=== PATIENT | female | born 1995 | race African-American/Black ===

== ENCOUNTER 2022-06-05 11:25 | Inpatient (IN) | payer MEDICAID ==
[~2022-06-05] VITALS: Ht 157.5 cm; Wt 73.9 kg
[2022-06-05] MEDS ORDERED: FAMOTIDINE 20MG TABLET PO ONE (12:30)
[2022-06-05] MEDS ORDERED: MAGNESIUM/ALUMINUM HYDROXIDE/SIMETHICONE 30ML UDC PO STA (12:30)
[2022-06-05] MEDS ORDERED: VISCOUS LIDOCAINE 2% 15 ML UDC PO STA (12:30)
[2022-06-05] MEDS ORDERED: ONDANSETRON 4MG ODT PO STA (12:30)
[2022-06-05 13:02] LABS: HEMATOCRIT. 34.7 % (36.0-48.0); HEMOGLOBIN. 11.8 g/dL (12.0-16.0); MEAN CORPUSCULAR HEMOGLOBIN 29.6 pg (28.0-32.0); MEAN CORPUSCULAR VOLUME 86.8 fL (81.0-99.0); MEAN PLATELET VOLUME 8.7 fl (7.4-10.4); PLATELET 204 x1000/uL (130-400); RED BLOOD CELL COUNT 3.99 mill/uL (4.2-5.4); RED CELL DISTRIBUTION WIDTH 13.3 % (11.6-14.6)
[2022-06-05 13:12] LABS: CLARITY URINE CLEAR (CLEAR); COLOR URINE YELLOW (YELLOW); KETONES URINE 3+ (NEGATIVE); LEUKOCYTE ESTERASE URINE TRACE (NEGATIVE); NITRITE URINE NEGATIVE (NEGATIVE); OCCULT BLOOD URINE 1+ (NEGATIVE); PH URINE 6.5 (4.5-8.0); PROTEIN URINE 1+ (NEGATIVE); SPECIFIC GRAVITY URINE 1.018 (1.005-1.030)
[2022-06-05 13:13] LABS: PROTHROMBIN TIME 11.1 sec (9.6-11.0)
[2022-06-05 13:18] LABS: CHLORIDE 92 mEq/L (98-107)
[2022-06-05 13:20] LABS: HCG SCREEN NEGATIVE
[2022-06-05 13:26] LABS: PLATELET ESTIMATE NORMAL
[2022-06-05] MEDS ORDERED: SODIUM CHLORIDE 0.9% 1,000 ML IV ONE (14:00)
[2022-06-05] MEDS ORDERED: PIPERACILLIN/TAZOBACTAM 3.375GM/50ML PREMIX IV ONE (14:00)
[2022-06-05] MEDS ORDERED: MORPHINE SULFATE 4 MG/ML CPJ (NOT FOR IM USE) IV ONE (14:00)
[2022-06-05] MEDS ORDERED: PIPERACILLIN/TAZ 3.375G PREMIX 50 ML IV NR ×2 (14:00→22:00)
[2022-06-05] MEDS ORDERED: BUPIVACAINE HCL/PF 0.5% (5MG/ML) 10ML ONE (17:14)
[2022-06-05] MEDS ORDERED: DEXT 5%/0.45% NACL KCL 10MEQ/L 1,000 ML IV SCH (17:15)
[2022-06-05] MEDS ORDERED: ACETAMINOPHEN 650MG SUPP PR PRN (17:15)
[2022-06-05] MEDS ORDERED: LEVOFLOXACIN 500MG PREMIX 100 ML IV SCH (17:15)
[2022-06-05] MEDS ORDERED: PANTOPRAZOLE SODIUM 40 MG/VIAL IV SCH (17:15)
[2022-06-05] MEDS ORDERED: TRAMADOL 50MG TABLET PO PRN (17:15)
[2022-06-05] MEDS ORDERED: GLYCOPYRROLATE 0.2 MG/ML 2ML VIAL ONE ×2 (17:17→17:18)
[2022-06-05] MEDS ORDERED: PROPOFOL 200MG/20ML VIAL IV ONE (17:17)
[2022-06-05] MEDS ORDERED: CEFAZOLIN SODIUM 1000MG/VIAL ONE (17:17)
[2022-06-05] MEDS ORDERED: ROCURONIUM BROMIDE 10MG/ML VIAL 5ML IV ONE (17:17)
[2022-06-05] MEDS ORDERED: NEOSTIGMINE METHYLSULFATE 1MG/ML 10 ML VIAL ONE (17:17)
[2022-06-05] MEDS ORDERED: SUCCINYLCHOLINE CHLORIDE 200MG/10ML IV ONE (17:17)
[2022-06-05] MEDS ORDERED: ONDANSETRON HCL 4MG/2ML INJ ONE (17:17)
[2022-06-05] MEDS ORDERED: DEXAMETHASONE 4MG/ML 1ML VIAL ONE (17:17)
[2022-06-05] MEDS ORDERED: FENTANYL CITRATE/PF 50MCG/ML 2ML VIAL ONE (17:18)
[2022-06-05] MEDS ORDERED: MIDAZOLAM HCL 2 MG/2 ML VIAL ONE (17:18)
[2022-06-05] MEDS: DEXT 5%/0.45% NACL KCL 10MEQ/L 1,000 ML IV SCH (17:30)
[2022-06-05] MEDS ORDERED: POLYMYXIN B SULFATE 500000 UNITS/VIAL ONE (18:01)
[2022-06-05] MEDS ORDERED: ALBUTEROL 6.7GM HFA INHALER ONE (18:07)
[2022-06-05] MEDS ORDERED: SKIN ADHESIVE 0.7 GM EA TOP ONE (18:28)
[2022-06-05] MEDS ORDERED: ONDANSETRON HCL 4MG/2ML INJ IV PRN ×2 (18:30→19:00)
[2022-06-05] MEDS ORDERED: LABETALOL 5MG/ML SYR 20 MG/4 ML SYRINGE IV PRN (18:30)
[2022-06-05] MEDS ORDERED: HYDROMORPHONE HCL/PF 2MG/ML CPJ IV PRN (18:30)
[2022-06-05] MEDS ORDERED: MEPERIDINE HCL/PF 25MG/ML CPJ IV PRN (18:30)
[2022-06-05] MEDS ORDERED: MORPHINE SULFATE 2 MG/ML CPJ (NOT FOR IM USE) IV PRN (19:00)
[2022-06-05] MEDS ORDERED: NALOXONE HCL 0.4MG/ML VIAL IV PRN (19:15)
[2022-06-05] MEDS: FAMOTIDINE 20MG/2ML VIAL IV SCH (21:00)
[2022-06-05 22:00] VITALS: BP 130/90
[2022-06-05] MEDS: METRONIDAZOLE 500 MG PREMIX 100 ML IV SCH (22:00)
[2022-06-05] MEDS ORDERED: METRONIDAZOLE 500 MG PREMIX 100 ML IV SCH (22:00)
[2022-06-06] VITALS: BP 120/80
[2022-06-06 04:00] VITALS: BP 120/82
[2022-06-06] MEDS: METRONIDAZOLE 500 MG PREMIX 100 ML IV SCH ×3 (06:33→22:23)
[2022-06-06] MEDS: PIPERACILLIN/TAZOBACTAM 3.375G in DEXT 5% WATER 50ML IV SCH ×3 (06:33→20:44)
[2022-06-06] MEDS: DEXT 5%/0.45% NACL KCL 10MEQ/L 1,000 ML IV SCH ×2 (06:33→14:32)
[2022-06-06] MEDS: HYDROMORPHONE HCL/PF 2MG/ML CPJ IV PRN ×2 (06:35→14:58)
[2022-06-06] MEDS: ONDANSETRON HCL 4MG/2ML INJ IV PRN (06:35)
[2022-06-06 08:00] VITALS: BP 108/65
[2022-06-06] MEDS: FAMOTIDINE 20MG/2ML VIAL IV SCH ×2 (09:44→20:43)
[2022-06-06 11:28] LABS: HEMATOCRIT. 30.9 % (36.0-48.0); HEMOGLOBIN. 10.3 g/dL (12.0-16.0); LYMPHOCYTES % 8.4 % (20.0-50.0); MEAN CORPUSCULAR HEMOGLOBIN 29.2 pg (28.0-32.0); MEAN CORPUSCULAR VOLUME 87.5 fL (81.0-99.0); MEAN PLATELET VOLUME 8.9 fl (7.4-10.4); MONOCYTES % 13.9 % (2.0-8.0); NEUTROPHILS % 77.7 % (40.0-76.0); PLATELET 212 x1000/uL (130-400); RED BLOOD CELL COUNT 3.54 mill/uL (4.2-5.4); RED CELL DISTRIBUTION WIDTH 13.5 % (11.6-14.6)
[2022-06-06 11:58] LABS: CHLORIDE 99 mEq/L (98-107)
[2022-06-06 12:00] VITALS: BP 114/60
[2022-06-06 12:29] LABS: HDL CHOLESTEROL 43 mg/dL (40-59); LDL CHOLESTEROL 85 mg/dL (5-100)
[2022-06-06 16:00] VITALS: BP 107/65
[2022-06-06] MEDS: MORPHINE SULFATE 4 MG/ML CPJ (NOT FOR IM USE) IV PRN ×2 (17:47→22:24)
[2022-06-06] MEDS: LEVOFLOXACIN 500MG PREMIX 100 ML IV SCH ×2 (18:01→18:02)
[2022-06-06 20:00] VITALS: BP 118/65
[2022-06-07] VITALS (7 sets, daily range): BP systolic 107–125; BP diastolic 69–86
[2022-06-07] MEDS: DEXT 5%/0.45% NACL KCL 10MEQ/L 1,000 ML IV SCH ×2 (01:04→14:40)
[2022-06-07] MEDS: METRONIDAZOLE 500 MG PREMIX 100 ML IV SCH ×3 (06:00→21:29)
[2022-06-07] MEDS: MORPHINE SULFATE 4 MG/ML CPJ (NOT FOR IM USE) IV PRN ×2 (06:10→08:47)
[2022-06-07] MEDS: FAMOTIDINE 20MG/2ML VIAL IV SCH ×2 (08:45→21:28)
[2022-06-07] MEDS ORDERED: BISACODYL 10MG SUPP PR NR (10:15)
[2022-06-07] MEDS: ONDANSETRON HCL 4MG/2ML INJ IV PRN (13:49)
[2022-06-07] MEDS: PIPERACILLIN/TAZOBACTAM 3.375G in DEXT 5% WATER 50ML IV SCH ×2 (14:00→21:29)
[2022-06-07] MEDS: LEVOFLOXACIN 500MG PREMIX 100 ML IV SCH (18:16)
[2022-06-08] MEDS ORDERED: SIMETHICONE 80MG TABLET CHEW PO NR
[2022-06-08] MEDS ORDERED: MELATONIN 3MG TABLET PO NR (00:15)
[2022-06-08] MEDS ORDERED: MELATONIN 6 MG PO ONE (00:15)
[2022-06-08 04:00] VITALS: BP 120/65
[2022-06-08] MEDS: DEXT 5%/0.45% NACL KCL 10MEQ/L 1,000 ML IV SCH ×2 (04:00→17:32)
[2022-06-08] MEDS: METRONIDAZOLE 500 MG PREMIX 100 ML IV SCH ×3 (05:46→21:33)
[2022-06-08] MEDS: PIPERACILLIN/TAZOBACTAM 3.375G in DEXT 5% WATER 50ML IV SCH ×3 (05:47→21:32)
[2022-06-08] MEDS: ONDANSETRON HCL 4MG/2ML INJ IV PRN (06:16)
[2022-06-08] MEDS: FAMOTIDINE 20MG/2ML VIAL IV SCH ×2 (06:17→18:16)
[2022-06-08] MEDS: HYDROMORPHONE HCL/PF 2MG/ML CPJ IV PRN (06:18)
[2022-06-08 08:00] VITALS: BP 119/70
[2022-06-08 12:00] VITALS: BP_SYST 129; BP_SYST 134; BP_DIAS 80; BP_DIAS 82
[2022-06-08 16:00] VITALS: BP 129/80
[2022-06-08] MEDS: LEVOFLOXACIN 500MG PREMIX 100 ML IV SCH (18:16)
[2022-06-08 20:00] VITALS: BP 107/65
[2022-06-09] VITALS: BP 102/55
[2022-06-09 04:00] VITALS: BP 100/65
[2022-06-09] MEDS: METRONIDAZOLE 500 MG PREMIX 100 ML IV SCH ×3 (07:59→21:16)
[2022-06-09 08:00] VITALS: BP 122/71
[2022-06-09] MEDS: DEXT 5%/0.45% NACL KCL 10MEQ/L 1,000 ML IV SCH ×2 (08:00→21:16)
[2022-06-09] MEDS: FAMOTIDINE 20MG/2ML VIAL IV SCH ×2 (08:00→18:00)
[2022-06-09] MEDS: PIPERACILLIN/TAZOBACTAM 3.375G in DEXT 5% WATER 50ML IV SCH ×3 (09:13→22:15)
[2022-06-09 12:00] VITALS: BP 116/71
[2022-06-09 16:00] VITALS: BP 122/72
[2022-06-09] MEDS: LEVOFLOXACIN 500MG PREMIX 100 ML IV SCH (17:28)
[2022-06-09 20:00] VITALS: BP 115/68
[2022-06-10] VITALS: BP 119/65
[2022-06-10 04:00] VITALS: BP 113/72
[2022-06-10] MEDS: FAMOTIDINE 20MG/2ML VIAL IV SCH ×2 (05:21→17:22)
[2022-06-10] MEDS: METRONIDAZOLE 500 MG PREMIX 100 ML IV SCH ×3 (05:21→21:16)
[2022-06-10] MEDS: PIPERACILLIN/TAZOBACTAM 3.375G in DEXT 5% WATER 50ML IV SCH ×3 (06:44→22:48)
[2022-06-10 08:00] VITALS: BP 119/76
[2022-06-10] MEDS: DEXT 5%/0.45% NACL KCL 10MEQ/L 1,000 ML IV SCH ×2 (08:56→23:36)
[2022-06-10] MEDS ORDERED: LEVO-65 MT (10:44)
[2022-06-10] MEDS ORDERED: METR-167 MT (10:44)
[2022-06-10 12:00] VITALS: BP 113/69
[2022-06-10 16:00] VITALS: BP 115/68
[2022-06-10] MEDS: LEVOFLOXACIN 500MG PREMIX 100 ML IV SCH (17:23)
[2022-06-10 20:00] VITALS: BP 102/56
[2022-06-11] VITALS: BP 105/58
[2022-06-11 04:00] VITALS: BP 110/76
[2022-06-11] MEDS: FAMOTIDINE 20MG/2ML VIAL IV SCH (05:54)
[2022-06-11] MEDS: PIPERACILLIN/TAZOBACTAM 3.375G in DEXT 5% WATER 50ML IV SCH (05:54)
[2022-06-11 08:00] VITALS: BP 112/74
[2022-06-11 14:51] VITALS: BP 107/63
== END 2022-06-11 15:56 | disposition home or self-care (01) | DRG 234 ==
LOC: ER 12:39 → EDBEDREQ 15:07 → EDBEDREQTM 15:07 → 6EST 22:00
PROVIDERS: ADMIT Hospitalist; ATTEND Hospitalist
PROC: 0DTJ4ZZ Resection of Appendix, Percutaneous Endoscopic Approach (ICD-10-PCS; principal; 2022-06-05)
DX: K35.80 Unspecified acute appendicitis (principal); K56.7 Ileus, unspecified; E28.2 Polycystic ovarian syndrome; R00.0 Tachycardia, unspecified; Z20.822 Contact with and (suspected) exposure to COVID-19
CPT/HCPCS: 36415; 71045; 74018; 74176; 80053; 80061; 81003; 84703; 85025; 85379; 87426; 88300; 88304; 93005; 97162; 99285; C1893; C9113; C9803; J0330; J0690; J1100; J1170; J1956; J2250; J2270; J2405; J2543; J2704; J2710; J3010; J3490; J7030; J7060; Q0162

== ENCOUNTER 2022-06-20 16:32 | Inpatient (IN) | payer MEDICAID ==
[~2022-06-20] VITALS: Ht 154.9 cm; Wt 59.0 kg
[~2022-06-20 16:32] MED LIST: LEVO-65 MT; METR-167 MT
[2022-06-20 21:12] LABS: CHLORIDE 99 mEq/L (98-107)
[2022-06-20] MEDS ORDERED: PIPERACILLIN/TAZ 3.375G PREMIX 50 ML IV ONE (21:15)
[2022-06-20] MEDS ORDERED: METRONIDAZOLE 500 MG PREMIX 100 ML IV ONE (21:15)
[2022-06-20 21:20] LABS: ETHANOL BLOOD < 10 mg/dL
[2022-06-20 21:43] LABS: HCG SCREEN NEGATIVE
[2022-06-20 22:16] LABS: BASOPHILS % 0.4 % (0.0-2.0); HEMATOCRIT. 29.2 % (36.0-48.0); HEMOGLOBIN. 9.2 g/dL (12.0-16.0); LYMPHOCYTES % 8.2 % (20.0-50.0); MEAN CORPUSCULAR HEMOGLOBIN 28.1 pg (28.0-32.0); MEAN PLATELET VOLUME 8.4 fl (7.4-10.4); NEUTROPHILS % 83.4 % (40.0-76.0); PLATELET 411 x1000/uL (130-400); RED BLOOD CELL COUNT 3.28 mill/uL (4.2-5.4); RED CELL DISTRIBUTION WIDTH 14.8 % (11.6-14.6)
[2022-06-20] MEDS ORDERED: ONDANSETRON HCL 4MG/2ML INJ IV STA (23:13)
[2022-06-20] MEDS ORDERED: MORPHINE SULFATE 4 MG/ML CPJ (NOT FOR IM USE) IV STA (23:13)
[2022-06-20] MEDS ORDERED: PIPERACILLIN/TAZ 3.375G PREMIX 50 ML IV NR (23:45)
[2022-06-21] MEDS ORDERED: HYDROMORPHONE HCL/PF 2MG/ML CPJ IV PRN
[2022-06-21] MEDS ORDERED: ACETAMINOPHEN 325MG TABLET PO PRN
[2022-06-21] MEDS ORDERED: ONDANSETRON HCL 4MG/2ML INJ IV PRN
[2022-06-21] MEDS ORDERED: NALOXONE HCL 0.4MG/ML VIAL IV PRN (00:15)
[2022-06-21] MEDS: DEXT 5%/0.45% NACL 1000ML 1,000 ML IV SCH ×2 (00:56→12:45)
[2022-06-21 02:07] LABS: CLARITY URINE CLOUDY (CLEAR); COLOR URINE DARK YELLOW (YELLOW); KETONES URINE 1+ (NEGATIVE); LEUKOCYTE ESTERASE URINE 1+ (NEGATIVE); NITRITE URINE NEGATIVE (NEGATIVE); OCCULT BLOOD URINE NEGATIVE (NEGATIVE); PH URINE 5.5 (4.5-8.0); PROTEIN URINE 1+ (NEGATIVE); SPECIFIC GRAVITY URINE 1.028 (1.005-1.030)
[2022-06-21 04:43] LABS: *AMPHETAMINES SCREEN URINE NEGATIVE (NEGATIVE); *BARBITURATES SCREEN URINE NEGATIVE (NEGATIVE); *BENZODIAZEPINES SCREEN URINE NEGATIVE (NEGATIVE); *COCAINE SCREEN URINE NEGATIVE (NEGATIVE); CANNABINOID URINE SCREEN NEGATIVE (NEGATIVE); METHADONE URINE SCREEN NEGATIVE (NEGATIVE); OPIATES URINE SCREEN PRESUMTIVE POSITIVE (NEGATIVE); PHENCYCLIDINE URINE SCREEN NEGATIVE (NEGATIVE)
[2022-06-21] MEDS ORDERED: PIPERACILLIN/TAZOBACTAM 3.375 G in DEXTROSE 5% WATER 50 ML IV SCH (06:00)
[2022-06-21] MEDS: TRAMADOL 50MG TABLET PO PRN ×2 (07:04→16:41)
[2022-06-21] MEDS: PIPERACILLIN/TAZOBACTAM 3.375 G in DEXTROSE 5% WATER 50 ML IV SCH ×3 (07:30→22:36)
[2022-06-21] MEDS ORDERED: DIATR MEGLU/DIATRIZOATE SOLN 30ML PO SCH (07:45)
[2022-06-21] MEDS ORDERED: DIATR MEGLU/DIATRIZOATE SOLN 30ML ONE (08:13)
[2022-06-21 12:00] VITALS: BP 113/76
[2022-06-21 20:00] VITALS: BP 112/68
[2022-06-22] VITALS: BP 95/54
[2022-06-22] MEDS: DEXT 5%/0.45% NACL 1000ML 1,000 ML IV SCH ×2 (02:54→16:00)
[2022-06-22 04:00] VITALS: BP 98/56
[2022-06-22] MEDS: PIPERACILLIN/TAZOBACTAM 3.375 G in DEXTROSE 5% WATER 50 ML IV SCH ×3 (05:09→21:09)
[2022-06-22 07:54] LABS: BASOPHILS % 0.3 % (0.0-2.0); EOSINOPHILS % 0.4 % (0.0-5.0); HEMATOCRIT. 26.7 % (36.0-48.0); HEMOGLOBIN. 8.9 g/dL (12.0-16.0); LYMPHOCYTES % 15.6 % (20.0-50.0); MEAN CORPUSCULAR HEMOGLOBIN 29.4 pg (28.0-32.0); MEAN CORPUSCULAR VOLUME 88.3 fL (81.0-99.0); MEAN PLATELET VOLUME 7.3 fl (7.4-10.4); MONOCYTES % 7.4 % (2.0-8.0); NEUTROPHILS % 76.3 % (40.0-76.0); PLATELET 368 x1000/uL (130-400); RED BLOOD CELL COUNT 3.03 mill/uL (4.2-5.4); RED CELL DISTRIBUTION WIDTH 14.5 % (11.6-14.6)
[2022-06-22 09:17] LABS: CHLORIDE 95 mEq/L (98-107)
[2022-06-22 09:28] LABS: HDL CHOLESTEROL 24 mg/dL (40-59); LDL CHOLESTEROL 63 mg/dL (5-100)
[2022-06-22] MEDS ORDERED: POTASSIUM CHLORIDE INJ 40 MEQ in DEXT 5% WATER 500 ML IV ONE (13:00)
[2022-06-22] MEDS: TRAMADOL 50MG TABLET PO PRN (16:38)
[2022-06-22 20:00] VITALS: BP 112/68
[2022-06-22] MEDS: KETOROLAC 15MG/ML VIAL IV PRN (21:53)
[2022-06-23] VITALS: BP 100/62
[2022-06-23 04:00] VITALS: BP 95/63
[2022-06-23] MEDS: DEXT 5%/0.45% NACL 1000ML 1,000 ML IV SCH ×2 (05:03→18:19)
[2022-06-23] MEDS: PIPERACILLIN/TAZOBACTAM 3.375 G in DEXTROSE 5% WATER 50 ML IV SCH ×3 (05:03→21:00)
[2022-06-23 08:00] VITALS: BP 94/59
[2022-06-23 08:08] LABS: BASOPHILS % 0.5 % (0.0-2.0); EOSINOPHILS % 1.1 % (0.0-5.0); HEMOGLOBIN. 8.4 g/dL (12.0-16.0); LYMPHOCYTES % 25.3 % (20.0-50.0); MEAN CORPUSCULAR HEMOGLOBIN 29.6 pg (28.0-32.0); MEAN CORPUSCULAR VOLUME 87.9 fL (81.0-99.0); MEAN PLATELET VOLUME 7.4 fl (7.4-10.4); MONOCYTES % 12.6 % (2.0-8.0); NEUTROPHILS % 60.5 % (40.0-76.0); PLATELET 290 x1000/uL (130-400); RED BLOOD CELL COUNT 2.85 mill/uL (4.2-5.4); RED CELL DISTRIBUTION WIDTH 14.1 % (11.6-14.6)
[2022-06-23 10:23] LABS: CHLORIDE 101 mEq/L (98-107)
[2022-06-23 12:00] VITALS: BP 110/69
[2022-06-23] MEDS ORDERED: POTASSIUM CHLORIDE 20MEQ TABLET SR PO NR (14:00)
[2022-06-23] MEDS: KETOROLAC 15MG/ML VIAL IV PRN (14:13)
[2022-06-23 20:00] VITALS: BP 98/62
[2022-06-24] VITALS: BP 100/58
[2022-06-24 04:00] VITALS: BP 105/61
[2022-06-24] MEDS: PIPERACILLIN/TAZOBACTAM 3.375 G in DEXTROSE 5% WATER 50 ML IV SCH ×3 (05:05→22:00)
[2022-06-24 08:00] VITALS: BP 97/62
[2022-06-24] MEDS: DEXT 5%/0.45% NACL 1000ML 1,000 ML IV SCH ×2 (08:29→21:20)
[2022-06-24 12:00] VITALS: BP 108/68
[2022-06-24] MEDS: KETOROLAC 15MG/ML VIAL IV PRN (15:01)
[2022-06-24 16:00] VITALS: BP 101/71
[2022-06-24 17:50] LABS: BASOPHILS % 1.2 % (0.0-2.0); EOSINOPHILS % 2.1 % (0.0-5.0); HEMOGLOBIN. 9.1 g/dL (12.0-16.0); LYMPHOCYTES % 31.9 % (20.0-50.0); MEAN CORPUSCULAR HEMOGLOBIN 28.9 pg (28.0-32.0); MEAN PLATELET VOLUME 7.9 fl (7.4-10.4); MONOCYTES % 11.6 % (2.0-8.0); NEUTROPHILS % 53.2 % (40.0-76.0); PLATELET 313 x1000/uL (130-400); RED BLOOD CELL COUNT 3.15 mill/uL (4.2-5.4); RED CELL DISTRIBUTION WIDTH 14.5 % (11.6-14.6)
[2022-06-24] MEDS ORDERED: DOCUSATE SODIUM 100MG CAPSULE PO PRN (18:15)
[2022-06-24] MEDS ORDERED: FAMOTIDINE 20MG TABLET PO PRN (18:15)
[2022-06-24 20:00] VITALS: BP 116/67
[2022-06-24 21:40] LABS: CHLORIDE 108 mEq/L (98-107)
[2022-06-25] MEDS: PIPERACILLIN/TAZOBACTAM 3.375 G in DEXTROSE 5% WATER 50 ML IV SCH ×2 (05:18→14:00)
[2022-06-25 08:00] VITALS: BP 111/62
[2022-06-25] MEDS: DEXT 5%/0.45% NACL 1000ML 1,000 ML IV SCH (10:00)
[2022-06-25 12:00] VITALS: BP 108/55
[2022-06-25 12:25] VITALS: BP 111/62
== END 2022-06-25 15:00 | disposition home or self-care (01) | DRG 720 ==
LOC: ER 16:32 → EDBEDREQ 22:01 → EDBEDREQTM 22:01 → MICUSO 06-21 06:07 → 6EST 06-21 09:56
PROVIDERS: ADMIT Hospitalist; ATTEND Hospitalist
DX: A41.9 Sepsis, unspecified organism (principal); K65.1 Peritoneal abscess; E43 Unspecified severe protein-calorie malnutrition; K56.7 Ileus, unspecified; R62.7 Adult failure to thrive; E86.0 Dehydration; Z20.822 Contact with and (suspected) exposure to COVID-19; N83.209 Unspecified ovarian cyst, unspecified side; N39.0 Urinary tract infection, site not specified; D72.829 Elevated white blood cell count, unspecified; Z68.24 Body mass index [BMI] 24.0-24.9, adult; Z90.49 Acquired absence of other specified parts of digestive tract
CPT/HCPCS: 36415; 74018; 74176; 74177; 76857; 80048; 80053; 80061; 80305; 80320; 81003; 83735; 84703; 85025; 87426; 93005; 99285; C1893; J1170; J1885; J2270; J2405; J2543; J3480; J3490; J7060; Q9963; G0480